=== PATIENT | male | born 1995 | race Two or more races ===

== ENCOUNTER 2018-07-28 19:14 | Emergency (ER) | payer OTHER | END 2018-07-28 20:24 | disposition left against medical advice (07) | LOC: ED 20:18 | DX: S01.81XA Laceration without foreign body of other part of head, initial encounter (principal); X58.XXXA Exposure to other specified factors, initial encounter; Y93.89 Activity, other specified; Y92.89 Other specified places as the place of occurrence of the external cause; Y99.8 Other external cause status ==

== ENCOUNTER 2018-10-13 12:09 | Emergency (ER) | payer OTHER ==
[~2018-10-13] VITALS: Ht 175.3 cm; Wt 69.6 kg
[2018-10-13] MEDS ORDERED: IBUPROFEN 200 MG TABLET ONE (12:42)
[2018-10-13 12:47] VITALS: BP 139/89
[2018-10-13] MEDS ORDERED: IBUPROFEN 200 MG TABLET PO ONE (13:00)
== END 2018-10-20 15:30 | disposition home or self-care (01) ==
LOC: ED 12:35
DX: K02.9 Dental caries, unspecified (principal)
CPT/HCPCS: 99283